=== PATIENT | female | born 1985 | race African-American/Black ===

== ENCOUNTER 2016-07-02 08:15 | Emergency (ER) | payer OTHER ==
[~2016-07-02] VITALS: Wt 55.0 kg
[~2016-07-02 08:15] MED LIST: CROM10DR6 BOTH EYES; CYCL-319 PO; IBUP-1542 PO; LORA-186 PO; METGEL45 VAGINAL; NITR-58 PO; PEN500 PO
[2016-07-02] MEDS ORDERED: FLUC150T17 PO (08:35)
[2016-07-02] MEDS ORDERED: POLY10DR19 BOTH EYES (08:35)
--- NOTE | 2016-07-02 08:42 | ERD ---
ER Documentation Chief Complaint Date/Time DATE: 07/02/16 TIME: 08:36 Chief Complaint bilateral eye drainage and vaginal discharge for a few days HPI Patient is a 30-year-old female who presents to the emergency department with numerous concerns. Patient states 3 days ago she started to have redness and itching of her bilateral eyes. Today patient states that she woke up with crusting of her left eyelid and was unable to open it. Patient states that she does have occasional yellow purulent discharge from her left eye. Patient denies any blurry vision, eye trauma or loss of consciousness. Patient also reporting vaginal discharge 4 days. Patient states that her discharge is white , thick, cottage cheeselike. Patient denies any excessive vaginal bleeding. Patient denies any pain with urination, urinary frequency, abdominal pain, nausea, vomiting, changes in her stool. Patient admits to yeast infections in the past and feels that her current symptoms are similar. ROS All systems reviewed and are negative except as per history of present illness. Medications Home Meds Active Scripts Fluconazole* (Diflucan*) 150 Mg Tablet, 150 MG PO ONCE, #2 TAB Prov:ANDRADE ORANTES PA-C 07/02/16 Polymyxin B Sulfate-TMP* (Polymyxin B-TMP Eye Drops*) 10 Ml Drops, 1 DROP BOTH EYES QID for 7 Days, EA Prov:ANDRADE ORANTES PA-C 07/02/16 Cyclobenzaprine Hcl* (Cyclobenzaprine Hcl*) 10 Mg Tablet, 10 MG PO TID, #15 TAB Prov:SHARI HALL. ENFORCEMENT OFFICER 04/09/16 Ibuprofen* (Motrin*) 600 Mg Tab, 600 MG PO Q6H Y for PAIN AND OR ELEVATED TEMP, #30 TAB Prov:SHARI HALL. ENFORCEMENT OFFICER 04/09/16 Penicillin V Potassium* (Penicillin V K*) 500 Mg Tab, 500 MG PO BID for 10 Days , TAB Prov:NICOLÁS KRUGER 12/01/15 Metronidazole* (Metrogel*) 0.75% -45 Gram Gel, 1 APPLIC VAGINAL QHS, #7 TUB Prov:MIRLANDE WINTER PA-C 10/03/15 Loratadine* (Claritin*) 10 Mg Tablet, 10 MG PO DAILY, #20 TAB Prov:JUAN FRANCISCO GRIGSBY PA-C 07/11/15 Cromolyn Sodium* (Cromolyn Sodium*) 4% - 10 Ml Drops, 1 DROP BOTH EYES QID for 5 Days, EA Prov:CALISTAFAIZANDixon Candi DAS 07/11/15 Nitrofurantoin Monohyd Macrocr* (Macrobid*) 100 Mg Capsr, 100 MG PO BID for 7 Days, CAP Prov:JOVON MCNAMARA NP 05/29/15 Reported Medications [None] No Conflict Check 02/12/15 Allergies Allergies: Coded Allergies: No Known Allergy (Unverified , 12/01/15) PMhx/Soc History of Surgery: No Anesthesia Reaction: No Hx Neurological Disorder: No Hx Respiratory Disorders: No Hx Cardiac Disorders: Yes (HYPERLIPIDEMIA) Hx Psychiatric Problems: No Hx Miscellaneous Medical Probl: No Hx Alcohol Use: No Hx Substance Use: No Hx Tobacco Use: No FmHx Family History: diabetes Physical Exam Vitals Vital Signs Date Time Temp Pulse Resp B/P Pulse Ox O2 Delivery O2 Flow Rate FiO2 07/02/16 08:16 98.8 71 20 136/81 100 Physical Exam GENERAL: Well-developed, well-nourished female. Appears in no acute distress. HEAD: Normocephalic, atraumatic. EYES: Pupils are equally reactive bilaterally. EOMs grossly intact. Left conjunctival erythema. Positive swelling to left upper eyelid. No purulent discharge at this time. No periorbital ecchymosis or swelling. ENT: External ear without any masses or tenderness. Auditory canals clear bilaterally. No hemotympanium. TM visualized bilaterally, non-erythematous, non- bulging. Nasal septum midline. Nasal mucosa pink with no discharge. Turbinates normal. Oropharynx is pink without any tonsillar erythema or exudates. NECK: Supple. No meningismus. Normal range of motion of the neck. LUNG: Clear to auscultation bilaterally. No rhonchi, wheezing, rales or coarse breath sounds. HEART: Regular rate and rhythm. No murmurs, rubs or gallops. ABDOMEN: No scars, ecchymosis or rashes noted. Soft, nontender, and nondistended. Positive bowel sounds in all four quadrants. No rebound tenderness , no guarding. (-) McBurney's point tenderness. No CVA tenderness. BACK: No midline tenderness. EXTREMITIES: Equal pulses bilaterally. No peripheral clubbing, cyanosis or edema. No unilateral leg swelling. NEUROLOGIC: Alert and oriented. Moving all four extremities without any difficulty. Normal speech. Steady gait. SKIN: Normal color. Warm and dry. No rashes or lesions. Results 24 hrs Laboratory Tests Test 07/02/16 08:58 Bedside Urine Blood 2+ Bedside Urine Glucose (UA) Negative Bedside Urine Ketones (LAB) Negative Bedside Urine Leukocyte Esterase (L Negative Bedside Urine Nitrite (LAB) Negative Bedside Urine Protein (LAB) Negative Bedside Urine pH (LAB) 6.0 Procedures/MDM MEDICAL DECISION MAKING: This is a 30-year-old female who presents with bilateral eye redness and vaginal discharge. Patient states that she woke up with left eyelid crusting and yellow discharge. Patient states that her vaginal discharge is thick, white , cottage cheeselike. Vital signs were reviewed. Patient was afebrile. Patient 's vision was grossly intact. Given these findings, the patient's eye redness and discharge is most consistent with bacterial conjunctivitis vs viral conjunctivitis. I have a much lower clinical concern for corneal abrasion, corneal ulcer, retained eye foreign body, glaucoma, periorbital cellulitis, orbital cellulitis, hordeolum, dacrocystitis. Given these findings, the patient 's vaginal discharge is most consistent with candidiasis. Low suspicion for bacterial vaginosis, trichomonas vaginalis, , spontaneous , UTI , pyelonephritis, nephrolithiasis. Cannot rule out STDs. At this time, I will empirically treat the patient with diflucan given patient's current symptoms and previous history of yeast infections. PRESCRIPTIONS: Diflucan, Polytrim DISCHARGE: At this time, patient is stable for discharge and outpatient management. Supportive measures were discussed with patient including warm/cool compresses. Patient advised not to wear contact lenses or eye makeup. I have instructed the patient to follow-up with his/her primary care physician in 1-2 days. I have discussed with the patient the possibility of needing to see an college specialist for further workup if symptoms persist. I have instructed the patient to promptly return to the ER for any new or worsening symptoms including increased pain, fever, swelling, redness, warmth, nausea, vomiting, . The patient and/or family expressed understanding of and agreement with this plan. All questions were answered. Home care instructions were provided. Departure Diagnosis: Primary Impression: Yeast infection Additional Impression: Conjunctivitis Conjunctivitis type: unspecified Laterality: bilateral Qualified Code: H10.9 - Conjunctivitis of both eyes, unspecified conjunctivitis type Condition: Stable Patient Instructions: Vaginal Infection: Yeast (Candidiasis), Conjunctivitis, Bacterial Additional Instructions: Call your primary care doctor TOMORROW for an appointment during the next 1-2 days.See the doctor sooner or return here if your condition worsens before your appointment time. Take medication as prescribed. ANDRADE ORANTES PA-C Jul 02, 2016 08:42
[2016-07-02 08:55] LABS: URINE BLOOD (Dip) POC 2+ (NEGATIVE)
== END 2016-07-02 09:20 | disposition home or self-care (01) ==
LOC: FTE 08:15
DX: B37.3 Candidiasis of vulva and vagina (principal); H10.9 Unspecified conjunctivitis
CPT/HCPCS: 81003; Z7502; 99284

== ENCOUNTER 2016-09-23 08:14 | Emergency (ER) | payer OTHER ==
[~2016-09-23] VITALS: Ht 160 cm; Wt 55.5 kg
[~2016-09-23 08:14] MED LIST changes: +FLUC150T17 PO; +POLY10DR19 BOTH EYES
[2016-09-23 08:16] VITALS: Ht 160 cm; Wt 55.5 kg
[2016-09-23] MEDS ORDERED: FLUC150T17 PO (08:48)
--- NOTE | 2016-09-23 09:12 | ERD ---
ER Documentation Chief Complaint Date/Time DATE: 09/23/16 TIME: 09:10 Chief Complaint vaginal discharge and itchyness x 4 days HPI 30-year-old female otherwise healthy comes in with vaginal discharge and itchiness for the past 4 days. Symptoms are mostly itching, with external irritation, with white discharge. She denies rashes. Patient states that she has some leftover MetroGel and did not experience any improvement of the symptoms. She denies any recent intercourse. She denies any pelvic pain, vaginal bleeding. She denies symptoms of painful urination, urgency, frequency or pelvic pain. ROS All systems reviewed and are negative except as per history of present illness. Medications Home Meds Active Scripts Fluconazole* (Diflucan*) 150 Mg Tablet, 150 MG PO ONCE, #1 TAB Prov:CLEMENT WHITLEY PA-C 09/23/16 Fluconazole* (Diflucan*) 150 Mg Tablet, 150 MG PO ONCE, #2 TAB Prov:ANDRADE ORANTES PA-C 07/02/16 Polymyxin B Sulfate-TMP* (Polymyxin B-TMP Eye Drops*) 10 Ml Drops, 1 DROP BOTH EYES QID for 7 Days, EA Prov:ANDRADE ORANTES PA-C 07/02/16 Cyclobenzaprine Hcl* (Cyclobenzaprine Hcl*) 10 Mg Tablet, 10 MG PO TID, #15 TAB Prov:SHARI HALL NP 04/09/16 Ibuprofen* (Motrin*) 600 Mg Tab, 600 MG PO Q6H Y for PAIN AND OR ELEVATED TEMP, #30 TAB Prov:SHARI HALL NP 04/09/16 Penicillin V Potassium* (Penicillin V K*) 500 Mg Tab, 500 MG PO BID for 10 Days , TAB Prov:NICOLÁS KRUGER 12/01/15 Metronidazole* (Metrogel*) 0.75% -45 Gram Gel, 1 APPLIC VAGINAL QHS, #7 TUB Prov:MIRLANDE WINTER PA-C 10/03/15 Loratadine* (Claritin*) 10 Mg Tablet, 10 MG PO DAILY, #20 TAB Prov:JUAN FRANCISCO GRIGSBY PA-C 07/11/15 Cromolyn Sodium* (Cromolyn Sodium*) 4% - 10 Ml Drops, 1 DROP BOTH EYES QID for 5 Days, EA Prov:JUAN FRANCISCO GRIGSBY PA-C 07/11/15 Nitrofurantoin Monohyd Macrocr* (Macrobid*) 100 Mg Capsr, 100 MG PO BID for 7 Days, CAP Prov:JOVON MCNAMARA NP 05/29/15 Reported Medications [None] No Conflict Check 02/12/15 Allergies Allergies: Coded Allergies: No Known Allergy (Unverified , 09/23/16) PMhx/Soc History of Surgery: No Anesthesia Reaction: No Hx Neurological Disorder: No Hx Respiratory Disorders: No Hx Cardiac Disorders: Yes (HYPERLIPIDEMIA) Hx Psychiatric Problems: No Hx Miscellaneous Medical Probl: No Hx Alcohol Use: No Hx Substance Use: No Hx Tobacco Use: No Smoking Status: Never smoker Physical Exam Vitals Vital Signs Date Time Temp Pulse Resp B/P Pulse Ox O2 Delivery O2 Flow Rate FiO2 09/23/16 08:16 98.3 90 18 129/74 99 Physical Exam General: Well-developed, well-nourished. The patient appears in no acute distress. HEENT: Head is normocephalic, atraumatic. No scleral icterus. Neck: Supple. Nontender. Lungs: Clear to auscultation. Normal air movement. Heart: Regular rate and rhythm. S1 and S2 are normal. No murmurs, gallops, or rubs. Abdomen: Nondistended. Extremities: No clubbing or cyanosis. Moving extremities x 4. No weakness. Neurologic: Alert and oriented 3. No focal deficits. Normal speech and gait. Skin: Normal turgor. No rash or lesions. Procedures/MDM 30-year-old female comes in with symptoms of vaginitis, she describes as itching with white discharge. She will be given Diflucan to treat her symptoms. Vitals are stable, she does not show any signs of PID, I doubt cervicitis, UTI, pyelonephritis. Departure Diagnosis: Primary Impression: Vaginitis Condition: Good Patient Instructions: Vaginal Infection: Yeast (Candidiasis) Additional Instructions: Call your primary care doctor TOMORROW for an appointment during the next 1-2 days.See the doctor sooner or return here if your condition worsens before your appointment time. CLEMENT WHITLEY PA-C September 23, 2016 09:12
== END 2016-09-23 09:32 | disposition home or self-care (01) ==
LOC: FTE 08:14
DX: N76.0 Acute vaginitis (principal)
CPT/HCPCS: 99283

== ENCOUNTER 2016-12-04 16:13 | Emergency (ER) | payer OTHER ==
[~2016-12-04] VITALS: Ht 160 cm; Wt 53.0 kg
[2016-12-04 16:19] VITALS: Ht 160 cm; Wt 53.0 kg
[2016-12-04] MEDS ORDERED: SLF10OP15 BOTH EYES (17:21)
[2016-12-04 17:26] VITALS: BP 110/75; PULSE 72; RESP 20; TEMP 98
--- NOTE | 2016-12-05 02:40 | ERD ---
ER Documentation Chief Complaint Date/Time DATE: 12/05/16 TIME: 02:38 Chief Complaint B/L EYE DISCHARGE X 4 DAYS HPI 31-year-old female patient with no significant past medical history presents the ED complaining of bilateral eye discharge that started 4 days ago. Reports that her son has a fever. States that she wears glasses but denies any contacts. Patient states that it is difficult to open her eyes in the morning as there are bilateral crusts. Denies any fever, chills, nausea, vomiting, headache, weakness, blurred vision, vision loss, photophobia, phonophobia. ROS All systems reviewed and are negative except as per history of present illness. Medications Home Meds Active Scripts Sulfacetamide Sodium* (Sulfacetamide Sodium*) 10%-15 Ml Opht Drops, 2 DROP BOTH EYES Q2H for 7 Days, EA Prov:SHIRA JUAREZ PA-C 12/04/16 Fluconazole* (Diflucan*) 150 Mg Tablet, 150 MG PO ONCE, #1 TAB Prov:CLEMENT WHITLEY PA-C 09/23/16 Fluconazole* (Diflucan*) 150 Mg Tablet, 150 MG PO ONCE, #2 TAB Prov:ANDRADE ORANTES PA-C 07/02/16 Polymyxin B Sulfate-TMP* (Polymyxin B-TMP Eye Drops*) 10 Ml Drops, 1 DROP BOTH EYES QID for 7 Days, EA Prov:ANDRADE ORANTES PA-C 07/02/16 Cyclobenzaprine Hcl* (Cyclobenzaprine Hcl*) 10 Mg Tablet, 10 MG PO TID, #15 TAB Prov:SHARI HALL NP 04/09/16 Ibuprofen* (Motrin*) 600 Mg Tab, 600 MG PO Q6H Y for PAIN AND OR ELEVATED TEMP, #30 TAB Prov:SHARI HALL SYSTEM SUPPORT SPECIALIST 04/09/16 Penicillin V Potassium* (Penicillin V K*) 500 Mg Tab, 500 MG PO BID for 10 Days , TAB Prov:NICOLÁS KRUGER 12/01/15 Metronidazole* (Metrogel*) 0.75% -45 Gram Gel, 1 APPLIC VAGINAL QHS, #7 TUB Prov:MIRLANDE WINTER PA-C 10/03/15 Loratadine* (Claritin*) 10 Mg Tablet, 10 MG PO DAILY, #20 TAB Prov:JUAN FRANCISCO GRIGSBY PA-C 07/11/15 Cromolyn Sodium* (Cromolyn Sodium*) 4% - 10 Ml Drops, 1 DROP BOTH EYES QID for 5 Days, EA Prov:ROBINJensJUAN FRANCISCO PA-C 07/11/15 Nitrofurantoin Monohyd Macrocr* (Macrobid*) 100 Mg Capsr, 100 MG PO BID for 7 Days, CAP Prov:JOVON MCNAMARA NP 05/29/15 Reported Medications [None] No Conflict Check 02/12/15 Allergies Allergies: Coded Allergies: No Known Allergy (Unverified , 09/23/16) PMhx/Soc Medical and Surgical Hx: pt denies Surgical Hx History of Surgery: No Anesthesia Reaction: No Hx Neurological Disorder: No Hx Respiratory Disorders: No Hx Cardiac Disorders: Yes (HYPERLIPIDEMIA) Hx Psychiatric Problems: No Hx Miscellaneous Medical Probl: No Hx Alcohol Use: No Hx Substance Use: No Hx Tobacco Use: No Physical Exam Vitals Vital Signs Date Time Temp Pulse Resp B/P Pulse Ox O2 Delivery O2 Flow Rate FiO2 12/04/16 17:26 98.0 72 20 110/75 100 Room Air 12/04/16 16:19 98.3 99 18 108/72 99 Physical Exam Const: Acf-hyx-zontoyhma, well-nourished. In no acute distress. Head: Atraumatic, normocephalic Eyes: Bilateral conjunctiva with injection. Slight dry yellow crust noted. No purulent discharge. PERRL. EOMI ENT: Normal external ear. Ear canal without erythema. Tympanic membrane pearly chinchilla without effusion or bulging. Nasal canal clear with normal turbinates. Moist oropharynx without tonsillar exudates. Non-erythematous pharynx. Uvula midline. No drooling. No trismus. Neck: Full range of motion. No meningismus. No cervical lymphadenopathy. Resp: Clear to auscultation bilaterally. No wheezing, rhonchi, rales, or crackles. No accessory muscle use. No retractions. Cardio: Regular rate and rhythm. No murmurs, rubs or gallops. Abd: Soft, non tender, non distended. Normal bowel sounds. No palpable masses. No rebound tenderness. No guarding. Skin: No petechiae or rashes Back: No midline tenderness. No CVA tenderness. Ext: No cyanosis, or edema. Neur: Awake and alert. Psych: Normal Mood and Affect Procedures/MDM This is a 31-year-old female patient with no significant past medical history presents the ED complaining of bilateral conjunctivitis started 4 days ago. Patient is afebrile and nontoxic-appearing. Patient has normal vital signs. Patient likely has conjunctivitis due to injection and purulent discharge and eye crusts in the morning making it difficult to open her eye. Patient's ocular symptoms have stabilized while they have been evaluated in the department and are appropriate for outpatient work up. Low suspicion for ruptured globe, retinal detachment, periorbital cellulitis, acute angle closure glaucoma, deep space infection, iritis, traumatic hyphema, subconjunctival hemorrhage, corneal abrasion, corneal ulcer, pterygium, hypopyon, blepharitis, hordeolum, chalazion , or other emergent conditions. Discharge medications: Sulfacetamide eyedrops Strictly instructed patient to follow up with her primary care physician in 2 days. Instructed patient to return to the ED for any worsening symptoms. Patient is hemodynamically stable. Patient's questions were answered. Patient understood and agreed with discharge plan. Departure Diagnosis: Primary Impression: Conjunctivitis Conjunctivitis type: unspecified Laterality: unspecified laterality Qualified Code: H10.9 - Conjunctivitis, unspecified conjunctivitis type, unspecified laterality Condition: Stable Patient Instructions: Conjunctivitis, Non-Specific Referrals: RAJAN VARGAS (PCP) [facility] YOU HAVE RECEIVED A MEDICAL SCREENING EXAM AND THE RESULTS INDICATE THAT YOU DO NOT HAVE A CONDITION THAT REQUIRES URGENT TREATMENT IN THE EMERGENCY DEPARTMENT. FURTHER EVALUATION AND TREATMENT OF YOUR CONDITION CAN WAIT UNTIL YOU ARE SEEN IN YOUR DOCTORS OFFICE WITHIN THE NEXT 1-2 DAYS. IT IS YOUR RESPONSIBILITY TO MAKE AN APPOINTMENT FOR FOLOW-UP CARE. IF YOU HAVE A PRIMARY DOCTOR --you should call your primary doctor and schedule an appointment IF YOU DO NOT HAVE A PRIMARY DOCTOR YOU CAN CALL OUR PHYSICIAN REFERRAL HOTLINE AT IF YOU CAN NOT AFFORD TO SEE A PHYSICIAN YOU CAN CHOSE FROM THE FOLLOWING COMMUNITY CLINICS [facility] [address] [facility]. [facility] [address] [facility]. [facility] [address] [facility]. [facility] [address] [facility]. [facility] [address] [facility]. [facility]. [address] [facility]. [facility] YOU HAVE RECEIVED A MEDICAL SCREENING EXAM AND THE RESULTS INDICATE THAT YOU DO NOT HAVE A CONDITION THAT REQUIRES URGENT TREATMENT IN THE EMERGENCY DEPARTMENT. FURTHER EVALUATION AND TREATMENT OF YOUR CONDITION CAN WAIT UNTIL YOU ARE SEEN IN YOUR DOCTORS OFFICE WITHIN THE NEXT 1-2 DAYS. IT IS YOUR RESPONSIBILITY TO MAKE AN APPOINTMENT FOR FOLOW-UP CARE. IF YOU HAVE A PRIMARY DOCTOR --you should call your primary doctor and schedule and appointment IF YOU DO NOT HAVE A PRIMARY DOCTOR YOU CAN CALL OUR PHYSICIAN REFERRAL HOTLINE AT . IF YOU CAN NOT AFFORD TO SEE A PHYSICIAN YOU CAN CHOSE FROM THE FOLLOWING [facility] INSTITUTIONS: [facility] [id number] [place] [address] [facility] [address] [place] [address] [facility] + [facility] [address] [place] [address] [facility] Hours: Mon - Fri 9:00 AM - 5:00 PM Additional Instructions: Call your primary care doctor TOMORROW for an appointment during the next 2 days.See the doctor sooner or return here if your condition worsens before your appointment time. SHIRA JUAREZ PA-C Dec 05, 2016 02:40 SHIRA JUAREZ PA-C Dec 05, 2016 02:40
== END 2016-12-04 17:26 | disposition home or self-care (01) ==
LOC: FTE 16:13
DX: H10.9 Unspecified conjunctivitis (principal)
CPT/HCPCS: 99283

== ENCOUNTER 2017-03-30 08:32 | Emergency (ER) | payer OTHER ==
[~2017-03-30] VITALS: Ht 160 cm; Wt 57.0 kg
[~2017-03-30 08:32] MED LIST changes: -PEN500 PO; +PENI500T PO; +SLF10OP15 BOTH EYES
[2017-03-30 08:34] VITALS: Ht 160 cm; Wt 57.0 kg
--- NOTE | 2017-03-30 10:06 | RADRPT ---
PROCEDURE: XR Chest. CLINICAL INDICATION: chest pain TECHNIQUE: Single frontal view of the chest was obtained COMPARISON: CR CHEST 04/02/2014 FINDINGS: The heart and mediastinum are within normal limits. The lungs are clear. There is no pleural effusion or pneumothorax. RPTAT: AA IMPRESSION: No acute disease. .Rell Morocho MD, MD Date Time Electronically viewed and signed by .Rell Morocho MD, on 03/30/2017 10:06 .S/
--- NOTE | 2017-03-30 10:51 | ERD ---
ER Documentation Chief Complaint Chief Complaint CHEST PAIN X1.5 WEEKS HPI 31-year-old female otherwise healthy presents with mid chest pain has been intermittent for the past week and a half. She describes as sharp, intermittent , nonexertional and she is asymptomatic at this time. There is no associated shortness of breath, dizziness, syncope or nausea. She is a non-smoker. She is PERC negative. ROS All systems reviewed and are negative except as per history of present illness. Medications Home Meds Active Scripts Sulfacetamide Sodium* (Sulfacetamide Sodium*) 10%-15 Ml Opht Drops, 2 DROP BOTH EYES Q2H for 7 Days, EA Prov:SHIRA JUAREZ PA-C 12/04/16 Fluconazole* (Diflucan*) 150 Mg Tablet, 150 MG PO ONCE, #1 TAB Prov:CLEMENT WHITLEY PA-C 09/23/16 Fluconazole* (Diflucan*) 150 Mg Tablet, 150 MG PO ONCE, #2 TAB Prov:ANDRADE ORANTES PA-C 07/02/16 Polymyxin B Sulfate-TMP* (Polymyxin B-TMP Eye Drops*) 10 Ml Drops, 1 DROP BOTH EYES QID for 7 Days, EA Prov:ANDRADE ORANTESC 07/02/16 Cyclobenzaprine Hcl* (Cyclobenzaprine Hcl*) 10 Mg Tablet, 10 MG PO TID, #15 TAB Prov:SHARI HALL NP 04/09/16 Ibuprofen* (Motrin*) 600 Mg Tab, 600 MG PO Q6H Y for PAIN AND OR ELEVATED TEMP, #30 TAB Prov:SHARI HALL NP 04/09/16 Penicillin V Potassium* (Penicillin V K*) 500 Mg Tab, 500 MG PO BID for 10 Days , TAB Prov:NICOLÁS KRUGER 12/01/15 Metronidazole* (Metrogel*) 0.75% -45 Gram Gel, 1 APPLIC VAGINAL QHS, #7 TUB Prov:MIRLANDE WINTER PA-C 10/03/15 Loratadine* (Claritin*) 10 Mg Tablet, 10 MG PO DAILY, #20 TAB Prov:JUAN FRANCISCO GRIGSBY PA-C 07/11/15 Cromolyn Sodium* (Cromolyn Sodium*) 4% - 10 Ml Drops, 1 DROP BOTH EYES QID for 5 Days, EA Prov:JUAN FRANCISCO GRIGSBY PA-C 07/11/15 Nitrofurantoin Monohyd Macrocr* (Macrobid*) 100 Mg Capsr, 100 MG PO BID for 7 Days, CAP Prov:JOVON MCNAMARA UPPER TIER 05/29/15 Reported Medications [None] No Conflict Check 02/12/15 Allergies Allergies: Coded Allergies: No Known Allergy (Unverified , 03/30/17) PMhx/Soc History of Surgery: No Anesthesia Reaction: No Hx Neurological Disorder: No Hx Respiratory Disorders: No Hx Cardiac Disorders: Yes (HYPERLIPIDEMIA) Hx Psychiatric Problems: No Hx Miscellaneous Medical Probl: No Hx Alcohol Use: No Hx Substance Use: No Hx Tobacco Use: No Physical Exam Vitals Vital Signs Date Time Temp Pulse Resp B/P Pulse Ox O2 Delivery O2 Flow Rate FiO2 03/30/17 08:34 98.4 72 16 134/83 100 Physical Exam General: Well-developed, well-nourished. The patient appears in no acute distress. HEENT: Head is normocephalic, atraumatic. No scleral icterus. Neck: Supple. Nontender. Lungs: Clear to auscultation. Normal air movement. Heart: Regular rate and rhythm. S1 and S2 are normal. No murmurs, gallops, or rubs. Abdomen: Soft, nontender, nondistended. Bowel sounds are normoactive. Extremities: No clubbing or cyanosis. Normal pulses. Moving extremities x 4. No weakness. Neurologic: Alert and oriented 3. No focal deficits. Skin: Normal turgor. No rash or lesions. Results 24 hrs 12-lead EKG(interpreted by supervising physician): Dr. Pat Rate/Rhythm: Normal Sinus Rhythm, rate of 68 QRS, ST, T-waves: No changes consistent w/ acute ischemia, no intervals, no dysrhythmias, no ectopy Impression: No evidence of ischemia or arrhythmia DIAGNOSTIC IMAGING REPORT Patient: MIGUEL MEDINA : 1985 Age: 31 Sex: F MR #: [id number] DOS: 03/30/17 0943 Ordering MD: CLEMENT WHITLEY PA-C Location: [facility] Room/Bed: PROCEDURE: XR Chest. CLINICAL INDICATION: chest pain TECHNIQUE: Single frontal view of the chest was obtained COMPARISON: CR CHEST 04/02/2014 FINDINGS: The heart and mediastinum are within normal limits. The lungs are clear. There is no pleural effusion or pneumothorax. RPTAT: AA IMPRESSION: No acute disease. .Rell Morocho MD, MD Date Time Electronically viewed and signed by .Rell Morocho MD, MD on 03/30/2017 10: 06 .S/ Procedures/MDM 29-year-old female comes in with chest pain is intermittent for the past week and half. Patient's symptoms are not consistent with pulmonary embolus, dissection, acute coronary syndrome. EKG shows normal sinus rhythm, chest x- ray shows no evidence of acute cardiopulmonary process. She has had this on and off, I have asked her to follow-up with cardiology if it becomes recurrent. If symptoms worsen she is to return to the emergency room. Departure Diagnosis: Primary Impression: Chest pain Condition: Good Patient Instructions: Chest Pain, Uncertain Cause Additional Instructions: Call your primary care doctor TOMORROW for an appointment during the next 1-2 days.See the doctor sooner or return here if your condition worsens before your appointment time. Symptoms become recurrent, please follow-up with a cattle sticker outpatient. CLEMENT WHITLEY PA-C Mar 30, 2017 10:51
== END 2017-03-30 11:30 | disposition home or self-care (01) ==
LOC: FTE 08:32
DX: R07.9 Chest pain, unspecified (principal)
CPT/HCPCS: 71010; 93005; Z7502

== ENCOUNTER 2017-06-01 08:29 | Emergency (ER) | END 2017-06-01 12:20 | disposition home or self-care (01) ==

== ENCOUNTER 2017-07-07 08:27 | Emergency (ER) | END 2017-07-07 09:58 | disposition home or self-care (01) ==

== ENCOUNTER 2018-03-05 12:45 | Emergency (ER) | END 2018-03-05 14:03 | disposition home or self-care (01) ==

== ENCOUNTER 2018-03-28 19:25 | Emergency (ER) | END 2018-03-28 21:55 | disposition home or self-care (01) ==

== ENCOUNTER 2018-07-20 08:28 | Emergency (ER) | payer OTHER ==
[~2018-07-20] VITALS: Ht 152.4 cm; Wt 54.2 kg
[~2018-07-20 08:28] MED LIST changes: -CYCL-319 PO; +CYCL10TA7 PO; +FLUC150T PO; -FLUC150T17 PO; +HYDR-4011 PO; +NAPR-985 PO
[2018-07-20 08:37] VITALS: Ht 152.4 cm; Wt 54.2 kg
[2018-07-20] MEDS ORDERED: FLUC150T PO (10:23)
[2018-07-20 10:33] VITALS: BP 119/68; PULSE 81; RESP 20
--- NOTE | 2018-07-20 10:34 | ERD ---
ER Documentation Chief Complaint Chief Complaint Vaginal discharge and burning sensation HPI 32-year-old female presents for vaginal discharge and burning sensation times 3 days. Vaginal fungal cream however she states that generally oral medications work better for her. The discharge noted to be white. No concerns for STI. She denies any fevers or chills. No significant past medical history. ROS All systems reviewed and are negative except as per history of present illness. Medications Home Meds Active Scripts Fluconazole* (Diflucan*) 150 Mg Tablet, 150 MG PO every 3 days for vaginitis, #2 TAB Prov:KATHERINE JUDD DO 07/20/18 Naproxen* (Naprosyn*) 500 Mg Tablet, 500 MG PO BID PRN for PAIN AND/OR INFLAMMATION, #30 TAB Prov:MIRLANDE WINTER PA-C 06/26/18 Hydrocodone/Acetaminophen ([place] 5-325 Tablet) 1 Each Tablet, 1 TAB PO Q6H PRN for PAIN, #7 TAB Prov:MIRLANDE WINTER PA-C 06/26/18 Fluconazole* (Diflucan*) 150 Mg Tablet, 150 MG PO ONCE, #1 TAB Prov:CLEMENT WHITLEY PA-C 07/07/17 Ibuprofen* (Motrin*) 600 Mg Tab, 600 MG PO Q6, #30 TAB Prov:SHIRA JUAREZ PA-C 06/01/17 Sulfacetamide Sodium* (Sulfacetamide Sodium*) 10%-15 Ml Opht Drops, 2 DROP BOTH EYES Q2H for 7 Days, EA Prov:SHIRA JUAREZ PA-C 12/04/16 Fluconazole* (Diflucan*) 150 Mg Tablet, 150 MG PO ONCE, #1 TAB Prov:CLEMENT WHITLEY PA-C 09/23/16 Fluconazole* (Diflucan*) 150 Mg Tablet, 150 MG PO ONCE, #2 TAB Prov:ANDRADE ORANTES PA-C 07/02/16 Polymyxin B Sulfate-TMP* (Polymyxin B-TMP Eye Drops*) 10 Ml Drops, 1 DROP BOTH EYES QID for 7 Days, EA Prov:ANDRADE ORANTES PA-C 07/02/16 Cyclobenzaprine Hcl* (Cyclobenzaprine Hcl*) 10 Mg Tablet, 10 MG PO TID, #15 TAB Prov:SHARI HALL NP 04/09/16 Ibuprofen* (Motrin*) 600 Mg Tab, 600 MG PO Q6H PRN for PAIN AND OR ELEVATED TEMP, #30 TAB Prov:SHARI HALL NP 04/09/16 Penicillin V Potassium* (Penicillin V K*) 500 Mg Tab, 500 MG PO BID for 10 Days, TAB Prov:NICOLÁS KRUGER 12/01/15 Metronidazole* (Metrogel*) 0.75% -45 Gram Gel, 1 APPLIC VAGINAL QHS, #7 TUB Prov:MIRLANDE WINTER PA-C 10/03/15 Loratadine* (Claritin*) 10 Mg Tablet, 10 MG PO DAILY, #20 TAB Prov:JUAN FRANCISCO GRIGSBY PA-C 07/11/15 Cromolyn Sodium* (Cromolyn Sodium*) 4% - 10 Ml Drops, 1 DROP BOTH EYES QID for 5 Days, EA Prov:JUAN FRANCISCO GRIGSBY PA-C 07/11/15 Nitrofurantoin Monohyd Macrocr* (Macrobid*) 100 Mg Capsr, 100 MG PO BID for 7 Days, CAP Prov:JOVON MCNAMARA NP 05/29/15 Reported Medications [None] No Conflict Check 02/12/15 Allergies Allergies: Coded Allergies: No Known Allergy (Unverified , 06/26/18) PMhx/Soc History of Surgery: No Anesthesia Reaction: No Hx Neurological Disorder: No Hx Respiratory Disorders: No Hx Cardiac Disorders: Yes (HYPERLIPIDEMIA) Hx Psychiatric Problems: No Hx Miscellaneous Medical Probl: No Hx Alcohol Use: No Hx Substance Use: No Hx Tobacco Use: No Physical Exam Vitals Vital Signs Date Temp Pulse Resp B/P (MAP) Pulse Ox O2 O2 Flow FiO2 Time Delivery Rate 07/20/18 99.1 86 20 125/70 100 08:37 (88) Physical Exam Const: No acute distress Resp: Clear to auscultation bilaterally Cardio: Regular rate and rhythm, no murmurs Abd: Soft, non tender, non distended. Normal bowel sounds Skin: No petechiae or rashes Back: No midline or flank tenderness Ext: No cyanosis, or edema Neur: Awake and alert Psych: Normal Mood and Affect Procedures/MDM Medical Decision Making: Differential diagnosis includes but not limited to fungal vaginitis, urethritis, pyelonephritis, bladder infection Patient appeared well on physical exam. Patient likely has fungal vaginitis Prescription(s): Patient given prescription for Diflucan x2 doses. Patient advised to follow up with PCP in 1-2 days. Patient advised to return to ED for new or worsening symptoms. Patient stable on discharge from the ED. Disclaimer: Inadvertent spelling and grammatical errors are likely due to EHR/dictation software use and do not reflect on the overall quality of patient care. Also, please note that the electronic time recorded on this note does not necessarily reflect the actual time of the patient encounter. Departure Diagnosis: Primary Impression: Vaginitis Chronicity: acute Qualified Codes: N76.0 - Acute vaginitis Condition: Fair Patient Instructions: Preventing Vaginitis Referrals: [facility] YOU HAVE RECEIVED A MEDICAL SCREENING EXAM AND THE RESULTS INDICATE THAT YOU DO NOT HAVE A CONDITION THAT REQUIRES URGENT TREATMENT IN THE EMERGENCY DEPARTMENT. FURTHER EVALUATION AND TREATMENT OF YOUR CONDITION CAN WAIT UNTIL YOU ARE SEEN IN YOUR DOCTORS OFFICE WITHIN THE NEXT 1-2 DAYS. IT IS YOUR RESPONSIBILITY TO MAKE AN APPOINTMENT FOR FOLOW-UP CARE. IF YOU HAVE A PRIMARY DOCTOR --you should call your primary doctor and schedule an appointment IF YOU DO NOT HAVE A PRIMARY DOCTOR YOU CAN CALL OUR PHYSICIAN REFERRAL HOTLINE AT IF YOU CAN NOT AFFORD TO SEE A PHYSICIAN YOU CAN CHOSE FROM THE FOLLOWING [facility] [address] [facility]. [facility] [address] [facility] [address] [facility] [facility] [address] [facility]. [facility] [address] [facility]. [facility]. [address] Additional Instructions: Call your primary care doctor TOMORROW for an appointment during the next 1-2 days.See the doctor sooner or return here if your condition worsens before your appointment time. KATHERINE JUDD DO Jul 20, 2018 10:33
== END 2018-07-20 10:35 | disposition home or self-care (01) ==
LOC: FTE 08:28
DX: N76.0 Acute vaginitis (principal)
CPT/HCPCS: 99281